=== PATIENT | female | born 1980 | race African-American/Black ===

== ENCOUNTER 2024-07-30 22:56 | Inpatient (IN) | payer SELFPAY ==
[2024-07-30 23:53] LABS: #Basophils Less than 0.03 10x3/uL (0.0-0.2); #Eosinophils Less than 0.03 10x3/uL (0.0-0.7); %Basophils 0.2 % (0.0-1.0); %Lymphocytes 11.7 % (21.0-51.0); %Monocytes 10.7 % (0.0-10.0); %Neutrophils 77.2 % (42.0-75.0); Base Excess -16.1 mEq/L (-2.0 to +3.0); Chloride (VBG) 105 mmol/L (98-106); Hematocrit 43.4 % (36.0-47.0); Hematocrit-VBG 45 % (36.0-47.0); Hemoglobin 13.9 g/dL (12.0-16.0); Hemoglobin (Hb) 15.3 g/dL (11.7-15.5); Mean Corpuscular Volume 84.3 fL (78.0-98.0); Mean Platelet Volume 11.5 fL (7.4-10.4); Platelet Count 377 10x3/uL (130-400); Potassium (VBG) 4.08 mmol/L (3.70-5.30); RBC Distribution Width 13.4 % (11.5-14.5); Red Blood Cell (RBC) Count 5.15 mill/uL (4.20-5.40); Sodium 142 mmol/L (133-146)
[2024-07-30 23:54] LABS: Actual Bicarbonate (HCO3v) 10.8 mEq/L (22-28); pH (venous) 7.179 (7.32-7.43)
[2024-07-31 00:03] LABS: BHCG - Serum Negative (NEGATIVE); Pregs Control Background? CLEAR/WHITE (CLR/WHITE); Pregs Control Bar Appear? YES (CONTROL BAR)
[2024-07-31 00:19] LABS: Troponin I Less than 0.010 ng/mL (< 0.028)
[2024-07-31 00:28] LABS: ALT (SGPT) 10 U/L (8-55); AST (SGOT) 10 U/L (5-34); Albumin 3.9 g/dL (3.5-5.0); Alkaline Phosphatase 74 U/L (40-110); Anion Gap 23 mmol/L (10-20); BUN (Urea Nitrogen) 15 mg/dL (7.0-18.7); Bilirubin, Total 0.6 mg/dL (0.2-1.2); Calc. Creatinine Clearance 0 mL/min (70-130); Carbon Dioxide 9 mmol/L (22-29); Chloride 108 mmol/L (98-107); Estimated GFR 54; Glucose 288 mg/dL (70-105); Magnesium 1.4 mg/dL (1.6-2.6); Protein, Total 8.9 g/dL (6.0-8.3); Sodium 136 mmol/L (136-145)
[2024-07-31] MEDS ORDERED: INSULIN REGULAR IN 0.9 % NACL 100 ML ONE (00:51)
[2024-07-31] MEDS ORDERED: Dextrose 5 %-0.45 % NaCl 1,000 ML IV PRN (01:00)
[2024-07-31] MEDS ORDERED: NS 0.9% w/ 20 MEQ KCL 1,000 ML IV PRN ×2 (01:00)
[2024-07-31] MEDS ORDERED: Electrolyte Replacement Protocol 1 EACH IVPB PRN (01:00)
[2024-07-31] MEDS ORDERED: Dextrose 50% Abboject 50 ML SYRINGE SLOW IVP PRN ×2 (01:00→09:15)
[2024-07-31] MEDS ORDERED: Sodium Chloride 0.9% 1,000 ML IV PRN ×4 (01:00)
[2024-07-31] MEDS ORDERED: INSULIN REGULAR IN 0.9 % NACL 100 ML IVPB SCH (01:00)
[2024-07-31] MEDS ORDERED: Benzonatate 100 MG CAP PO PRN (01:05)
[2024-07-31] MEDS ORDERED: Ketorolac Tromethamine 30 MG (1 mL) VIAL ONE (01:08)
[2024-07-31] MEDS ORDERED: Promethazine HCl 25 MG/ML VIAL ONE (01:08)
[2024-07-31] MEDS ORDERED: cefTRIAXone (ROCEPHIN) 1 GM VIAL ONE (01:09)
[2024-07-31] MEDS: Magnesium Sulfate In Water 4 GM in Premix 1 BAG IVPB SCH (02:14)
[2024-07-31] MEDS: Azithromycin 500 MG in Sodium Chloride 0.9% 250 ML 250 ML IVPB SCH (02:20)
[2024-07-31] MEDS ORDERED: Ipratropium/Albuterol 3 ML NEB NEB SCH (02:30)
[2024-07-31] MEDS: D5 1/2 NS w/20 mEq KCL 1,000 ML IV PRN (02:32)
[2024-07-31 02:34] VITALS: BMI 39.9
[2024-07-31 02:39] LABS: Lactic Acid 1.58 mmol/L (0.5-2.2)
[2024-07-31] MEDS: Vancomycin (BATCH) 2.5 GM in Premix 1 BAG IVPB SCH (03:14)
[2024-07-31 03:49] LABS: Influenza A by NAA Not Detected (NotDetected); Influenza B by NAA Not Detected (NotDetected); SARS-CoV-2 NAA Rapid Test Not Detected (NotDetected)
[2024-07-31 04:14] LABS: Hemoglobin A1c 13.5 % (4.0-6.0)
[2024-07-31 04:18] LABS: Anion Gap 20 mmol/L (10-20); BUN (Urea Nitrogen) 16 mg/dL (7.0-18.7); Calc. Creatinine Clearance 113 mL/min (70-130); Calcium 8.6 mg/dL (7.8-10.44); Carbon Dioxide Less than 8 mmol/L (22-29); Chloride 112 mmol/L (98-107); Estimated GFR 64; Glucose 234 mg/dL (70-105); Phosphorus 1.5 mg/dL (2.3-4.7); Potassium 3.4 mmol/L (3.5-5.1); Sodium 136 mmol/L (136-145)
[2024-07-31] MEDS: Cefepime 2 GM in Sodium Chloride 0.9% 100 ML IVPB SCH (05:06)
[2024-07-31] MEDS: Potassium Phosphate 22 MMOL in Sodium Chloride 0.9% 250 ML 250 ML IVPB SCH (05:06)
[2024-07-31] MEDS: Budesonide 0.5 MG/2 ML NEB INH SCH ×2 (06:28→20:19)
[2024-07-31] MEDS: Ipratropium/Albuterol 3 ML NEB NEB PRN (06:30)
[2024-07-31 08:27] LABS: Anion Gap 16 mmol/L (10-20); BUN (Urea Nitrogen) 15 mg/dL (7.0-18.7); Calc. Creatinine Clearance 133 mL/min (70-130); Calcium 8.2 mg/dL (7.8-10.44); Carbon Dioxide 10 mmol/L (22-29); Chloride 114 mmol/L (98-107); Estimated GFR 77; Glucose 179 mg/dL (70-105); Magnesium 2.1 mg/dL (1.6-2.6); Potassium 3.9 mmol/L (3.5-5.1); Sodium 136 mmol/L (136-145)
[2024-07-31] MEDS ORDERED: Docusate 100 MG CAP PO PRN (08:50)
[2024-07-31] MEDS ORDERED: Polyethylene Glycol 3350 17 GM Packet PO PRN (08:50)
[2024-07-31] MEDS ORDERED: Oseltamivir 75 MG CAP PO SCH (09:00)
[2024-07-31] MEDS ORDERED: Vancomycin 1 GM in Premix 1 BAG IVPB SCH (09:00)
[2024-07-31] MEDS ORDERED: Glucagon 1 MG/ML KIT IM PRN (09:15)
[2024-07-31] MEDS ORDERED: Dextrose 5% in Water 1,000 ML IV PRN (09:15)
[2024-07-31] MEDS: Insulin Glargine 30 UNITS/0.3 ML VIAL SC SCH (09:59)
[2024-07-31] MEDS: Enoxaparin 40 MG (0.4 mL) SYRINGE SC SCH (09:59)
[2024-07-31] MEDS: Famotidine/PF 20 mg/2ml Vial SLOW IVP SCH (09:59)
[2024-07-31] MEDS: Ascorbic Acid 500 mg Chewable Tablet PO SCH (10:00)
[2024-07-31] MEDS: guaiFENesin/DM ER PO SCH (10:00)
[2024-07-31] MEDS: Loratadine 10 MG TAB PO SCH (10:00)
[2024-07-31] MEDS ORDERED: Ondansetron PF 4 MG/2 ML Vial IVP PRN (10:10)
[2024-07-31] MEDS: Lactated Ringer's 1,000 ML IV SCH (11:00)
[2024-07-31] MEDS: Acetaminophen 325 MG TAB PO PRN (13:01)
[2024-07-31] MEDS: Metoclopramide HCl 10 MG (2 mL) VIAL IVP SCH (13:01)
[2024-07-31] MEDS: PHOS-NAK 1 PKT PACK PO SCH (16:15)
[2024-07-31] MEDS: Vancomycin 1 GM in Premix 1 BAG IVPB SCH (17:03)
[2024-07-31] MEDS: Insulin Lispro 100 UNIT/ML 10 ML VIAL SC PRN (17:07)
[2024-07-31] MEDS: Potassium Phosphate 15 MMOL in Sodium Chloride 0.9% 100 ML IVPB SCH (17:39)
[2024-08-01] MEDS ORDERED: Vancomycin (BATCH) 1.5 GM in Premix 1 BAG IVPB SCH (06:00)
[2024-08-01 07:44] LABS: Vancomycin, Random 31.7 ug/mL (See Comment)
[2024-08-01 07:50] LABS: Phosphorus 1.8 mg/dL (2.3-4.7)
[2024-08-01 07:51] LABS: Anion Gap 16 mmol/L (10-20); BUN (Urea Nitrogen) 10 mg/dL (7.0-18.7); Calc. Creatinine Clearance 139 mL/min (70-130); Calcium 8.1 mg/dL (7.8-10.44); Carbon Dioxide 12 mmol/L (22-29); Chloride 109 mmol/L (98-107); Estimated GFR 81; Glucose 342 mg/dL (70-105); Potassium 3.4 mmol/L (3.5-5.1); Sodium 134 mmol/L (136-145)
[2024-08-01 08:34] LABS: #Basophils Less than 0.03 10x3/uL (0.0-0.2); #Eosinophils Less than 0.03 10x3/uL (0.0-0.7); %Basophils 0.3 % (0.0-1.0); %Eosinophils 0.1 % (0.0-10.0); %Lymphocytes 22.9 % (21.0-51.0); %Monocytes 9.5 % (0.0-10.0); %Neutrophils 67.1 % (42.0-75.0); Hematocrit 33.1 % (36.0-47.0); Hemoglobin 10.8 g/dL (12.0-16.0); Mean Corpuscular HGB CONC 32.6 g/dL (32.0-36.0); Mean Corpuscular Hemoglobin 26.5 pg (27.0-31.0); Mean Corpuscular Volume 81.3 fL (78.0-98.0); Mean Platelet Volume 11.2 fL (7.4-10.4); Platelet Count 255 10x3/uL (130-400); Red Blood Cell (RBC) Count 4.07 mill/uL (4.20-5.40)
[2024-08-01] MEDS: Potassium Chloride 20 MEQ TAB PO SCH (08:47)
[2024-08-01] MEDS: PHOS-NAK 1 PKT PACK PO SCH (08:48)
[2024-08-01] MEDS: Magnesium 2 GM/50 ML(in water) 2 GM in Premix 1 BAG IVPB SCH (08:50)
[2024-08-01 09:13] LABS: ALT (SGPT) 6 U/L (8-55); AST (SGOT) 11 U/L (5-34); Albumin 2.9 g/dL (3.5-5.0); Alkaline Phosphatase 57 U/L (40-110); Anion Gap 13 mmol/L (10-20); BUN (Urea Nitrogen) 10 mg/dL (7.0-18.7); Bilirubin, Total 1.1 mg/dL (0.2-1.2); Calc. Creatinine Clearance 136 mL/min (70-130); Calcium 8.3 mg/dL (7.8-10.44); Carbon Dioxide 13 mmol/L (22-29); Chloride 109 mmol/L (98-107); Estimated GFR 79; Globulin 3.7 g/dL (2.4-3.5); Glucose 373 mg/dL (70-105); Magnesium 1.9 mg/dL (1.6-2.6); Phosphorus 1.5 mg/dL (2.3-4.7); Potassium 3.4 mmol/L (3.5-5.1); Protein, Total 6.6 g/dL (6.0-8.3); Sodium 132 mmol/L (136-145)
[2024-08-01] MEDS ORDERED: Dextrose 5% in Water 1,000 ML IV PRN (09:44)
[2024-08-01] MEDS ORDERED: Dextrose 50% Abboject 50 ML SYRINGE SLOW IVP PRN (09:44)
[2024-08-01] MEDS ORDERED: Glucagon 1 MG/ML KIT IM PRN (09:44)
[2024-08-01] MEDS: Insulin Lispro 100 UNIT/ML 10 ML VIAL SC PRN (11:46)
[2024-08-01 16:00] LABS: Anion Gap 15 mmol/L (10-20); BUN (Urea Nitrogen) 10 mg/dL (7.0-18.7); Calc. Creatinine Clearance 137 mL/min (70-130); Calcium 8.2 mg/dL (7.8-10.44); Carbon Dioxide 14 mmol/L (22-29); Chloride 109 mmol/L (98-107); Estimated GFR 80; Glucose 328 mg/dL (70-105); Potassium 3.9 mmol/L (3.5-5.1); Sodium 134 mmol/L (136-145)
[2024-08-01 16:12] LABS: Phosphorus 2.1 mg/dL (2.3-4.7)
[2024-08-02 06:02] LABS: Hematocrit 31.4 % (36.0-47.0); Hemoglobin 10.4 g/dL (12.0-16.0); Mean Corpuscular HGB CONC 33.1 g/dL (32.0-36.0); Mean Corpuscular Hemoglobin 26.7 pg (27.0-31.0); Mean Corpuscular Volume 80.5 fL (78.0-98.0); Mean Platelet Volume 11.6 fL (7.4-10.4); Platelet Count 246 10x3/uL (130-400); RBC Distribution Width 14.1 % (11.5-14.5)
[2024-08-02 06:34] LABS: Band 1 % (5-11); Burr Cells SLIGHT = 2-5 cells HPF (0-1); Large Platelets 5.8 % (0-5); Lymphocytes 35 % (21-51); Monocytes 10 % (0-10); Neutrophil 51 % (42-75); Plasma Cells 1 % (0-0); Platelet Adequacy Comment Platelets Normal; Reactive Lymphocytes 1 % (0-10); Smudge Cells 14.6 %
[2024-08-02 06:40] LABS: ALT (SGPT) 8 U/L (8-55); AST (SGOT) 9 U/L (5-34); Albumin 2.7 g/dL (3.5-5.0); Alkaline Phosphatase 51 U/L (40-110); Anion Gap 14 mmol/L (10-20); BUN (Urea Nitrogen) 9 mg/dL (7.0-18.7); Bilirubin, Total 1.1 mg/dL (0.2-1.2); Calc. Creatinine Clearance 176 mL/min (70-130); Calcium 8.3 mg/dL (7.8-10.44); Carbon Dioxide 17 mmol/L (22-29); Chloride 108 mmol/L (98-107); Estimated GFR 108; Globulin 3.6 g/dL (2.4-3.5); Glucose 282 mg/dL (70-105); Potassium 3.4 mmol/L (3.5-5.1); Protein, Total 6.3 g/dL (6.0-8.3); Sodium 136 mmol/L (136-145)
[2024-08-02 08:14] VITALS: BP 111/72; TEMP 98
[2024-08-02] MEDS: Potassium Bicarbonate/Cit Ac 20 MEQ TAB PO SCH (08:15)
[2024-08-02] MEDS: Magnesium 2 GM/50 ML(in water) 2 GM in Premix 1 BAG IVPB SCH (08:46)
[2024-08-07] MEDS ORDERED: FLU (Fluarix Triv) TS24-25(6MOS UP)/PF 45 MCG/0.5 ML Syringe IM ONE (09:00)
== END 2024-08-02 15:36 | disposition home or self-care (01) | DRG 637 ==
LOC: ERS 22:56 → IMCU/EMU 07-31 01:39 → T4-A 07-31 18:01
PROVIDERS: ADMIT Internal Medicine; ATTEND Internal Medicine
DX: E11.10 Type 2 diabetes mellitus with ketoacidosis without coma (principal); A41.9 Sepsis, unspecified organism; J18.9 Pneumonia, unspecified organism; Z82.49 Family history of ischemic heart disease and other diseases of the circulatory system; Z83.3 Family history of diabetes mellitus; Z79.84 Long term (current) use of oral hypoglycemic drugs; E87.6 Hypokalemia; E83.42 Hypomagnesemia; E86.0 Dehydration; Z79.4 Long term (current) use of insulin; J45.909 Unspecified asthma, uncomplicated
CPT/HCPCS: 36415; 36416; 71045; 80048; 80053; 80202; 82010; 82805; 83036; 83605; 83735; 84100; 84145; 84484; 84703; 85025; 87070; 87077; 87081; 87205; 87633; 93005; 94640; 96365; 96375; J0456; J0692; J0696; J1650; J1815; J1885; J2550; J2765; J3370; J3475; J3480; J3490; J7050; J7120; J7620; J7626